=== PATIENT | female | born 1960 | race Caucasian/White ===

== ENCOUNTER 2023-11-02 09:45 | Day surgery (SDC) | payer OTHER ==
[2023-10-30 11:33] LABS: Absolute Lymphocytes (CBC) 1.8 K/uL (0.7-4.9); Hematocrit 37.9 % (36.0-45.0); Lymphocytes % 35.1 % (15.3-44.8); MCV 90.9 fL (80-100); MPV 8.9 fL (7.6-11.3); Platelets 216 thou/uL (152-406); RBC Red Blood Cell Count 4.16 M/uL (3.86-4.86)
[2023-10-30 11:39] LABS: Potassium 4.9 mEq/L (3.5-5.1)
--- NOTE | 2023-10-31 13:06 | EKG ---
Test Date: 2023-10-30 Test Time: 12:11:03 Acetylene Gas Compressor: LETHA MEASUREMENT RESULTS: Intervals: Rate: 61 UT: 148 QRSD: 84 QT: 402 QTc: 404 [place]: P: 54 UT: 148 QRS: 60 T: 54 INTERPRETIVE STATEMENTS: Normal sinus rhythm Normal ECG No previous ECG available for comparison Electronically Signed On 10-31-23 13:04:07 LABORATORY PHLEBOTOMIST by Joe Broussard
[2023-11-02] MEDS ORDERED: CEFAZOLIN SODIUM 2 GM/VIAL ONE (10:05)
[2023-11-02] MEDS ORDERED: Ringers Lactate 1,000 ML IV ONE (10:16)
[2023-11-02] MEDS ORDERED: BUPIVACAINE 0.25% PF 30 ML VIAL ONE (10:35)
[2023-11-02] MEDS ORDERED: ROCURONIUM 50 MG/5 ML VIAL IV ONE (10:39)
[2023-11-02] MEDS ORDERED: ONDANSETRON 4 MG/2 ML VIAL ONE ×2 (10:39→12:19)
[2023-11-02] MEDS ORDERED: FENTANYL CITR 100 MCG/2 ML ONE (10:39)
[2023-11-02] MEDS ORDERED: KETOROLAC 30 MG/ML INJ ONE (10:39)
[2023-11-02] MEDS ORDERED: propofoL 200 MG/20 ML VIAL IV ONE (10:39)
[2023-11-02] MEDS ORDERED: MIDAZOLAM HCL 2 MG/2 ML INJ ONE (10:39)
[2023-11-02] MEDS ORDERED: LIDOCAINE 2% MPF 5 ML VIAL ONE (10:39)
[2023-11-02] MEDS ORDERED: dexAMETHasone 10 MG/ML VIAL ONE (10:39)
[2023-11-02] MEDS ORDERED: GLYCOPYRROLATE 0.2 MG/ML SYR ONE (11:41)
[2023-11-02] MEDS ORDERED: NEOSTIGMINE 1 MG/ML -10 ML VIAL ONE (11:41)
--- NOTE | 2023-11-02 11:57 | P.OP ---
Preoperative diagnosis: Ventral Umbilical Hernia Postoperative diagnosis: Ventral Umbilical Hernia Primary procedure: Laparoscopic Umbilical Hernia Repair with mesh Anesthesia: GETA + Local Estimated blood loss: <10cc Specimen: None Findings: ~3cm hernia defect @ umbilicus Complications: None Implants: 11.4cm round bard ventralite st mesh, sorbafix x 45 tacks Transferred to: Recovery Room Condition: Good
[2023-11-02] MEDS ORDERED: NA CHLORIDE 0.9% 1,000 ML ONE (12:04)
[2023-11-02] MEDS ORDERED: HYDROMORPHONE HCL 1 MG/ML INJ ONE (12:19)
[2023-11-02] MEDS ORDERED: Oxycodone HCl/Acetaminophen 5/325 MG TAB ONE (13:41)
[2023-11-02 13:56] VITALS: BP 131/99; TEMP 96; O2SAT 96
--- NOTE | 2023-11-02 15:37 | OP ---
Date of Procedure: 11/02/2023 Surgeon: Loki Ly MD, Preoperative Diagnosis: Ventral umbilical hernia. Postoperative Diagnosis: Ventral umbilical hernia. Procedure Performed: Laparoscopic umbilical hernia repair with mesh. Anesthesia: General endotracheal plus local with 0.25% Marcaine. Estimated Blood Loss: Less than 10 cc. Specimen: None. Findings: Approximately 3 cm hernia defect at the umbilicus. Complications: None. Implants: 1.4 cm round Bard Ventralight mesh with Echo positioning System. SorbaFix absorbable fixat ion tacks 45. Disposition: The patient was transferred to the recovery room in good condition. Procedure In Detail: After informed consent was obtained, the patient was brought to the operating r oom, prepped and draped in the usual sterile fashion. After adequate anesthesia was achieved, I anes thetized an area of the left upper quadrant down to subcutaneous tissues. A 5 mm 0-degree optical tr ocar was introduced in the abdomen without evidence of complication. Insufflation was obtained to 15 mmHg at this time. There was no injury to vital structures upon entry into the abdomen. Additional trocar was placed in the left midabdomen. This was similarly anesthetized, sharply incised. A 12 m m trocar was placed under direct visualization without evidence of complication. I then proceeded to use the LigaSure device to take down significant adhesions from the anterior abdominal wall and from the omentum, which were trapped within the umbilical hernia defect, which was approximately 2 cm in size. After this was taken down, I swept back all preperitoneal fat to allow for appropriate landing zone. I then brought in the Endo stitch with V-Loc and imbricated the hernia sac, closing in a runn ing fashion with good approximation of tissue with the 0 V-Loc suture. I then deployed an 11.[address] Ventralight mesh with Echo positioning system. An 11.4 cm round mesh utilized at the central port ion of this. I used SorbaFix absorbable fixation tacks and secured to the anterior abdominal wall in a double crown type orientation and then removed the balloon deployment system, found to be intact o n the back table. I then inspected the area under desufflation pressure. There were no hemostatic m easures required. I then used the Jimena suture passer to close the 12 mm trocar site witho ut evidence of complication with an 0 Vicryl suture in an interrupted fashion. The abdomen was compl etely desufflated under direct visualization without evidence of complication. Remaining skin incisi ons were then copiously irrigated and closed with a 4-0 Monocryl in a running fashion. Dermabond was placed over top. The patient tolerated the procedure without evidence of complication and transferr ed to PACU in good condition. All counts were correct at the end of the case. BRANDON/LEISA Voice ID: [id number] Report ID: [id number]
== END 2023-11-02 14:08 | disposition home or self-care (01) ==
LOC: OR 09:45
PROVIDERS: ATTEND Surgery
PROC: 0WUF4JZ Supplement Abdominal Wall with Synthetic Substitute, Percutaneous Endoscopic Approach (ICD-10-PCS; principal; 2023-11-02 11:15)
DX: K42.9 Umbilical hernia without obstruction or gangrene (principal); E78.5 Hyperlipidemia, unspecified; Z88.0 Allergy status to penicillin; Z88.5 Allergy status to narcotic agent
CPT/HCPCS: 93005; 85025; 80048; 36415; 49591; J2704; J2710; J2001; J2250; J3010; J1100; J1170; J2405 ×2; J7120; J7030; C1781